=== PATIENT | male | born 1995 | race African-American/Black ===

== ENCOUNTER → 2020-05-22 | Emergency (ER) | payer BC ==
[~2020-05-22] VITALS: Ht 175.3 cm; Wt 77.1 kg
[2020-05-22 09:12] VITALS: BP 128/60
== END ==
LOC: ER 09:09
DX: M79.672 Pain in left foot (principal); Z91.010 Allergy to peanuts; Z91.018 Allergy to other foods; Z91.013 Allergy to seafood